=== PATIENT | male | born 1955 | race Caucasian/White ===

== ENCOUNTER 2016-08-31 21:18 | Emergency (ER) | payer MEDICARE, OTHER ==
[~2016-08-31] VITALS: Ht 152.4 cm; Wt 70.0 kg
[~2016-08-31 21:18] MED LIST: ABIL5TAB6 PO; CIAL5TAB PO; GEMF600T PO; HYDR2.5C TOPICAL; LISI40TA PO; METF1000 PO; OMEP20TA PO; REME30TA PO; VIST50CA PO
[2016-08-31 21:21] VITALS: BP 168/99; PULSE 90; RESP 16; TEMP 98.9; O2SAT 97
[2016-08-31] MEDS ORDERED: Cholesterol Med (22:15)
[2016-08-31] MEDS ORDERED: QUET5TAB PO (22:15)
[2016-08-31] MEDS ORDERED: BUSP5TAB PO (22:15)
--- NOTE | 2016-08-31 22:33 | PD ---
HPI Chief Complaint: Injury Time Seen by Provider: 22:33 Travel History International Travel<30 days: No Contact w/Intl Traveler<30days: No Traveled to known affect area: No History of Present Illness HPI 61-year-old male presents to emergency department for evaluation right knee pain. Patient had a trip and fall yesterday in the street. He is able to get himself up. He did not strike his head or lose consciousness. Reports 8 out of 10 right anterior knee pain. Denies any fever or chills. No other symptoms to report. PFSH Past Medical History Arthritis: Yes Anxiety: Yes Depression: Yes Cardiovascular Problems: Yes (htn) High Cholesterol: Yes Chest Pain: Yes Cerebrovascular Accident: Yes Diabetes: Yes Patient Takes Glucophage: No Diminished Hearing: No GERD: Yes Hypertension: Yes Psychiatric: Yes (PTSD) Tetanus Vaccination: < 5 Years Influenza Vaccination: Yes Past Surgical History Cholecystectomy: Yes Genitourinary Surgery: Yes (BLADDER SURGERY) Tonsillectomy: Yes Other Surgery: Yes (Bilateral knee arthroscopy) Social History Alcohol Use: No Tobacco Use: No Substance Use: No Allergies-Medications (Allergen,Severity, Reaction): Coded Allergies: Atorvastatin (Verified Allergy, Mild, Rash, 08/31/16) Reported Meds & Prescriptions Reported Meds & Active Scripts Active Hydrocortisone Topical 2.5% Cream 1 Applic TOPICAL BID Metformin (Metformin HCl) 1,000 Mg Tab 1,000 Mg PO BIDPC With meals Omeprazole 20 Mg Tab 20 Mg PO DAILY Lisinopril 40 Mg Tab 40 Mg PO DAILY Reported [Cholesterol Med] Quetiapine (Quetiapine Fumarate) 50 Mg Tab 50 Mg PO HS Buspirone (Buspirone HCl) 5 Mg Tab 5 Mg PO TID Vistaril (Hydroxyzine Pamoate) 50 Mg Cap 50 Mg PO QID PRN Review of Systems Except as stated in HPI: all other systems reviewed are Neg Physical Exam Narrative GENERAL: Well-nourished, well-developed male patient, ambulatory and in no acute distress SKIN: Focused skin assessment warm/dry. Abrasion on the anterior right knee HEAD: Normocephalic. EYES: No scleral icterus. No injection or drainage. NECK: Supple, trachea midline. No JVD or lymphadenopathy. CARDIOVASCULAR: Regular rate and rhythm without murmurs, gallops, or rubs. RESPIRATORY: Breath sounds equal bilaterally. No accessory muscle use. GASTROINTESTINAL: Abdomen soft, non-tender, MUSCULOSKELETAL: No cyanosis, or edema. Patient has full flexion and extension of the affected knee. No valgus or stress identified. Distal pulses intact. BACK: Nontender without obvious deformity. No CVA tenderness. Data Data Last Documented VS Vital Signs Date Time Temp Pulse Resp B/P Pulse Ox O2 Delivery O2 Flow Rate FiO2 08/31/16 22:02 Room Air 08/31/16 21:21 98.9 90 16 168/99 97 Orders Knee, Complete (4vws) (08/31/16 ) Ketorolac Inj (Toradol Inj) (08/31/16 22:45) [facility] Medical Decision Making Medical Screen Exam Complete: Yes Emergency Medical Condition: Yes Medical Record Reviewed: Yes Differential Diagnosis Contusion versus fracture versus sprain versus effusion Narrative Course 61-year-old male presents to emergency department for evaluation of right knee pain. There is patellar tenderness to palpation otherwise knee exam is without acute concern. X-ray imaging shows no acute bony abnormality. Patient is medically cleared to undergo psychiatric screening for further evaluation and disposition. Diagnosis Primary Impression: Contusion of knee, right Referrals: Primary Care Physician Patient Instructions: Contusion in Adults (ED), General Instructions Additional Instructions: Ice to the affected Follow-up with primary care provider Soham wrap for compression. This may help with discomfort Tylenol or ibuprofen as directed on the package as needed for pain Return immediately with any acute worsening of symptoms Med/Other Pt SpecificInfo: No Change to Meds Disposition: 01 DISCHARGE HOME Condition: Stable Maryjane Garcia August 31, 2016 22:33
[2016-08-31] MEDS ORDERED: KETOROLAC TROMETHAMINE 60 MG/2 ML (IM) VIAL IM ONE (22:45)
--- NOTE | 2016-08-31 22:52 | RADRPT ---
EXAM DATE/TIME: 08/31/2016 22:24 [facility] COMPARISON: No previous studies available for comparison. INDICATIONS : Fall. Right knee pain. MEDICAL HISTORY : None. SURGICAL HISTORY : None. ENCOUNTER: Initial ACUITY: 1 day PAIN SCORE: 6/10 LOCATION: Right lateral FINDINGS: Mild to moderate osteoarthritis is noted involving the medial femoral tibial and patellofemoral joint s. There is no acute fracture, dislocation or knee joint effusion. CONCLUSION: 1. No acute fracture, dislocation or knee joint effusion. 2. Mild to moderate osteoarthritis involving the medial femoral tibial joint and the patellofemoral joint. Deshawn Calhoun MD on August 31, 2016 at 22:40 Board Certified Radiologist. This report was verified electronically.
== END 2016-09-01 00:18 | disposition home or self-care (01) ==
LOC: NEPD 21:18
DX: S80.01XA Contusion of right knee, initial encounter (principal); I10 Essential (primary) hypertension; W18.09XA Striking against other object with subsequent fall, initial encounter; Y92.410 Unspecified street and highway as the place of occurrence of the external cause
CPT/HCPCS: 73564; 96372; 99284; J1885